=== PATIENT | female | born 1965 | race American Indian/Alaskan Native ===

== ENCOUNTER 2017-02-23 15:58 | Emergency (ER) | payer OTHER ==
[2017-02-23 16:58] LABS: Basophils % (Auto) 0.7 % (0.0-1.8); Eosinophils % (Auto) 6.1 % (0.0-4.3); Hemoglobin 11.8 gm/dl (10.1-14.3); Mean Corpuscular HGB Conc 33 % (30-34); Mean Corpuscular Hemoglobin 30 pg (28-32); Mean Corpuscular Volume 93 fl (79-97); Platelet Count 235 K/mm3 (140-440); Red Blood Count 3.88 M/mm3 (3.65-5.03); Red Cell Distribution Width 13.3 % (13.2-15.2); White Blood Count 5.5 K/mm3 (4.5-11.0)
[2017-02-23 17:08] LABS: Anion Gap 15 mmol/L; Blood Urea Nitrogen 12 mg/dL (7-17); Calcium 9.7 mg/dL (8.4-10.2); Carbon Dioxide 30 mmol/L (22-30); Chloride 100.9 mmol/L (98-107); Glucose 81 mg/dL (65-100); Potassium 3.9 mmol/L (3.6-5.0); Sodium 142 mmol/L (137-145)
[2017-02-23 17:22] LABS: Bilirubin,Urine NEG (Negative); Blood,Urine NEG (Negative); Ketones,Urine NEG (Negative); Leukocyte Esterase,Urine NEG (Negative); Mucus,Urine FEW /HPF; Nitrite,Urine NEG (Negative); Protein,Urine <15 mg/dL mg/dL (Negative); RBC,Urine < 1.0 /HPF (0.0-6.0); Urobilinogen,Urine < 2.0 mg/dL (<2.0)
--- NOTE | 2017-02-23 23:44 | Emergency Department Report ---
ED General Adult HPI - General Chief complaint: Pain General Stated complaint: ABDOMINAL PAIN,SWELLING OF BODY Time Seen by Provider: 02/23/17 23:31 Source: patient Mode of arrival: Ambulatory Limitations: No Limitations - History of Present Illness Initial comments: Ms. Aragon is 51 years old female with no significant medical history except for high blood pressure she stated that yesterday she felt swelling on both legs and some shortness of breath that continue the whole afternoon patient attributed that to possible allergic reaction to one of seasonal that she she use for her steak. Patient stated that she is feeling better now. Denied any difficulty swallowing or shortness of breath at this moment. -: Sudden, Last night - Related Data Allergies Allergy/AdvReac Type Severity Reaction Status Date / Time latex Allergy Hives Verified 02/23/17 16:24 ED Review of Systems ROS: Stated complaint: ABDOMINAL PAIN,SWELLING OF BODY Other details as noted in HPI Comment: All other systems reviewed and negative Constitutional: denies: chills, diaphoresis Respiratory: shortness of breath Cardiovascular: denies: chest pain, palpitations, dyspnea on exertion Gastrointestinal: denies: abdominal pain, nausea, vomiting Genitourinary: denies: frequency, hematuria Neurological: denies: headache, weakness, numbness ED Past Medical Hx - Past Medical History Previous Medical History?: Yes Hx Hypertension: Yes Additional medical history: IBS, Thyroid - Surgical History Past Surgical History?: Yes Additional Surgical History: hysterectomy - Social History Smoking Status: Never Smoker Substance Use Type: None ED Physical Exam - General Limitations: No Limitations General appearance: alert, in no apparent distress - Head Head exam: Present: normocephalic - Eye Eye exam: Present: normal appearance - ENT ENT exam: Present: normal exam, normal orophraynx, mucous membranes moist - Neck Neck exam: Present: normal inspection. Absent: tenderness, meningismus, full ROM, lymphadenopathy - Respiratory Respiratory exam: Present: normal lung sounds bilaterally. Absent: respiratory distress, wheezes, rales, rhonchi, stridor, chest wall tenderness, accessory muscle use, decreased breath sounds, prolonged expiratory - Cardiovascular Cardiovascular Exam: Present: regular rate, normal rhythm, normal heart sounds - GI/Abdominal GI/Abdominal exam: Present: soft, normal bowel sounds. Absent: distended, tenderness, guarding, rebound, rigid, mass, bruit, pulsatile mass, hernia - Extremities Exam Extremities exam: Present: normal inspection, full ROM, normal capillary refill. Absent: pedal edema, joint swelling, calf tenderness - Back Exam Back exam: Present: normal inspection. Absent: CVA tenderness (R), CVA tenderness (L) - Neurological Exam Neurological exam: Present: alert, oriented X3, CN II-XII intact - Skin Skin exam: Present: warm, intact, normal color ED Course Vital Signs 02/23/17 02/23/17 16:25 22:04 Temperature 98.4 F 97.8 F Pulse Rate 71 64 Respiratory 16 16 Rate Blood Pressure 143/86 Blood Pressure 128/64 [Left] O2 Sat by Pulse 100 95 Oximetry - Reevaluation(s) Reevaluation #1: 02/23/17 23:43 Patient stated that she does not have any symptoms at this moment ED Medical Decision Making - Lab Data Result diagrams: 02/23/17 16:35 02/23/17 16:35 - Medical Decision Making Labs reviewed with no acute abnormalities patient's feeling better does not have any symptom at this moment we'll discharge home to follow-up with her primary care physician Critical care attestation.: If time is entered above; I have spent that time in minutes in the direct care of this critically ill patient, excluding procedure time. ED Disposition Clinical Impression: Allergic reaction Disposition: DC-01 TO HOME OR SELFCARE Is pt being admited?: No Condition: Stable Instructions: Food Allergy (ED) Referrals: PRIMARY CARE, [Primary Care Provider] - 3-5 Days
[2017-02-23 23:57] VITALS: BP 129/86
== END 2017-02-23 23:56 | disposition home or self-care (01) ==
LOC: ED 15:58
DX: T78.40XA Allergy, unspecified, initial encounter (principal); I10 Essential (primary) hypertension; Z91.040 Latex allergy status
CPT/HCPCS: 36415; 80048; 81001; 85025; 87086; 99283

== ENCOUNTER 2017-06-04 14:21 | Emergency (ER) | payer OTHER ==
[2017-06-04] MEDS ORDERED: DECADRON IM ONE (20:55)
--- NOTE | 2017-06-04 21:03 | Emergency Department Report ---
ED Rash HPI - HPI Chief Complaint: Skin Rash Stated Complaint: RASH Time Seen by Provider: 06/04/17 20:54 Duration: 8 weeks Location: Chest, Back, Abdomen, Upper Extremities (painful generalized rash), Lower Extremities Suspected Cause: Food (History of multiple food allergies w/o outbreak in 20 years) Rash Symptoms: Yes Itching, No Facial Swelling, No Tongue/Oral Swelling, No Breathing Difficulties, No Choking Sensation, No Wheezing/Dyspnea, No Peeling, No Blistering, No Fever, No Lightheaded, No Malaise, No Myalgias Severity: moderate Other History: This is a 51 y.o. female presents with generalized rash that has a puritus and burning sensation. Patient is taking benadryl and pepcid with minimal improvement. Denies SOB, wheezing, and difficulty swallowing. ED Review of Systems ROS: Stated complaint: RASH Other details as noted in HPI Constitutional: denies: chills, fever Respiratory: denies: cough, shortness of breath, wheezing Cardiovascular: denies: chest pain, palpitations Gastrointestinal: denies: abdominal pain, nausea, diarrhea Skin: rash (generalized on BUE, BLE, and posterior trunk), pruritus. denies: change in color, change in hair/nails Neurological: denies: headache, weakness, paresthesias ED Past Medical Hx - Past Medical History Hx Hypertension: Yes Additional medical history: IBS, Thyroid - Surgical History Additional Surgical History: hysterectomy, spine - Social History Smoking Status: Never Smoker Substance Use Type: None - Medications Home Medications: Home Medications Medication Instructions Recorded Confirmed Last Taken Type Cetirizine HCl [Allergy] 10 mg PO DAILY #30 tablet 06/04/17 Unknown Rx EPINEPHrine [Epipen] 0.3 mg IJ ONCE #1 auto.injct 06/04/17 Unknown Rx Hydroxyzine HCl 50 mg PO Q8HR PRN #30 tablet 06/04/17 Unknown Rx Prednisone [predniSONE 10 mg 10 mg PO .TAPER #1 tab.ds.pk 06/04/17 Unknown Rx (6-Day Pack, 21 Tabs)] Ranitidine HCl [Zantac] 300 mg PO DAILY #30 tablet 06/04/17 Unknown Rx Rash Exam - Exam General: Vital signs noted. No distress. Alert and acting appropriately. HEENT: No Periorbital Edema, No Conjuctival Injection, No Chemosis, No Perioral Edema, No Tongue Edema, No Uvular Edema, No Compromised Airway, No Drooling Lungs: Yes Good Air Exchange, No Wheezes, No Ronchi, No Stridor, No Cough, No Labored Respirations, No Retractions, No Use of Accessory Muscles, No Other Abnormal Lung Sounds Heart: Yes Regular, No Murmur Skin: Yes Maculopapular Rash (multiple 1 cm macules, erythematous to BUE, BLE, and posterior trunk), Yes Erythema, No Morbilliform rash, No Bulla(e), No Excoriations, No Weeping, No Tenderness, No Edema, No Encrustations ED Course Vital Signs 06/04/17 15:16 Temperature 98.1 F Pulse Rate 75 Respiratory 16 Rate Blood Pressure 123/82 O2 Sat by Pulse 98 Oximetry ED Medical Decision Making - Medical Decision Making This is a 51 female with maculopapular rash to posterior trunk, BUE, & BLE. History of multiple food allergies, Unknown cause, last allergic reaction was 20 yrs ago. She haven't saw an respiratory therapy manager in years. Denies change in soaps and eating new foods. Given dexamethasone 8 mg IV once in ER. Sent home with prednisone taper, hydroxyzine, cetirizine, ranitidine, and epipen. Instructed to F/U with PCP, dermatology, and allergy. Critical care attestation.: If time is entered above; I have spent that time in minutes in the direct care of this critically ill patient, excluding procedure time. 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 Use fragrance free products. Prescriptions: Cetirizine HCl [Allergy] 10 mg PO DAILY #30 tablet EPINEPHrine [Epipen] 0.3 mg IJ ONCE #1 auto.injct Hydroxyzine HCl 50 mg PO Q8HR PRN #30 tablet PRN Reason: Itching Prednisone [predniSONE 10 mg (6-Day Pack, 21 Tabs)] 10 mg PO .TAPER #1 tab.ds.pk Ranitidine HCl [Zantac] 300 mg PO DAILY #30 tablet Referrals: PRIMARY CARE, [Primary Care Provider] - 3-5 Days [facility] [Provider Group] - 3-5 Days [facility] [Provider Group] - 3-5 Days Time of Disposition: 21:18 Print Language: CYPRIOT
[2017-06-04 21:28] VITALS: BP 122/86
== END 2017-06-04 21:27 | disposition home or self-care (01) ==
LOC: ED 14:21
DX: L23.89 Allergic contact dermatitis due to other agents (principal); I10 Essential (primary) hypertension; K58.9 Irritable bowel syndrome, unspecified; Z90.710 Acquired absence of both cervix and uterus; Z91.040 Latex allergy status
CPT/HCPCS: 96372; 99282; J1100